=== PATIENT | male | born 1985 | race Caucasian/White ===

== ENCOUNTER 2020-05-12 09:10 | Outpatient (REF) | payer OTHER, SELFPAY ==
[2020-05-12 10:23] LABS: Estimated Average Glucose 260 mg/dL; Hemoglobin A1c % 10.7 %
[2020-05-13 17:57] LABS: Lyme Abs Screen <0.90 index
== END 2020-05-12 09:11 | disposition home or self-care (01) ==
LOC: HO.LAB 09:10
PROVIDERS: PCP Physician Assistant Medical; Visit Provider Psychiatry & Neurology Neurology
DX: G51.0 Bell's palsy (principal); E11.9 Type 2 diabetes mellitus without complications; Z79.4 Long term (current) use of insulin
CPT/HCPCS: 83036; 86618